=== PATIENT | male | born 1995 | race Hispanic/Latino ===

== ENCOUNTER 2019-09-02 12:53 | Emergency (ER) | payer OTHER ==
[2019-09-02] MEDS ORDERED: Adacel (T-DAP) 0.5 ML SYRINGE ONE (13:07)
[2019-09-02] MEDS ORDERED: Amoxicillin/Potassium Clav 875 MG TAB ONE (13:07)
== END 2019-09-02 13:28 | disposition home or self-care (01) ==
LOC: BURERS 12:53
DX: S61.250A Open bite of right index finger without damage to nail, initial encounter (principal); L03.011 Cellulitis of right finger; F32.9 Major depressive disorder, single episode, unspecified; F41.9 Anxiety disorder, unspecified; W55.01XA Bitten by cat, initial encounter
CPT/HCPCS: 90471; 90715; 99283

== ENCOUNTER 2020-04-25 10:58 | Emergency (ER) | payer OTHER ==
[2020-04-26 14:07] LABS: SARS-CoV-2 MS2 Positive; SARS-CoV-2 N Gene Negative; SARS-CoV-2 S Gene Negative; SARS-CoV-2 by NAA Not Detected (NotDetected); SARS-CoV-2 orf1ab Negative
== END 2020-04-25 11:45 | disposition home or self-care (01) ==
LOC: BURERS 10:58
DX: R51 Headache (principal); R05 Cough; R06.02 Shortness of breath; Z20.828 Contact with and (suspected) exposure to other viral communicable diseases; F32.9 Major depressive disorder, single episode, unspecified
CPT/HCPCS: 87635; 99284; U0003